=== PATIENT | female | born 1940 | race Caucasian/White ===

== ENCOUNTER 2018-05-28 16:22 | Outpatient (CLI) | payer MEDICARE, OTHER ==
--- NOTE | 2018-05-28 21:48 | Diagnostic Imaging Report ---
FRANCIS BERRIOS [facility] [id number] [id number] Report Submission Date: May 28, 2018 5:10:50 PM CDT Patient Study Name: ASHLIE RANDALL Date: May 28, 2018 4:29:50 PM CDT Modality Type: DX Gender: F Description: UPPER EXTREMITY : 42 Institution: [facility] Physician: FRANCIS BERRIOS Left thumb History: Slammed door on her thumb 3 weeks ago 3 views of the left thumb were obtained which demonstrate a small 1.5 mm ossific density projecting volarly adjacent to the IP joint, possibly a tiny avulsion fracture. Otherwise, no osseous abnormalities are noted. Impression: Possible tiny avulsion fracture volarly adjacent to IP joint. Electronically signed on May 28, 2018 5:10:50 PM CDT by: Dedra RODRIGUEZ
== END 2018-05-28 16:23 ==
LOC: RAD 16:22
PROVIDERS: ATTEND Family Medicine
DX: S69.92XA Unspecified injury of left wrist, hand and finger(s), initial encounter (principal); X58.XXXA Exposure to other specified factors, initial encounter; Y92.9 Unspecified place or not applicable; Y93.9 Activity, unspecified; Y99.9 Unspecified external cause status
CPT/HCPCS: 73140